=== PATIENT | male | born 1995 | race Caucasian/White ===

== ENCOUNTER → 2016-08-31 | Outpatient (REF) | payer OTHER | LOC: M LAB REF 20:58 | PROVIDERS: ATTEND Physician Assistant | DX: J02.9 Acute pharyngitis, unspecified (principal) ==

== ENCOUNTER 2016-09-05 06:53 | Emergency (ER) | payer OTHER ==
[~2016-09-05] VITALS: Ht 154.9 cm; Wt 72.6 kg
[2016-09-05 06:59] VITALS: BP 147/85
[2016-09-05] MEDS ORDERED: AMOX875T PO (07:14)
[2016-09-05] MEDS ORDERED: IBUPROFEN 600 MG TAB PO ONE (07:15)
[2016-09-05] MEDS ORDERED: AMOXICILLIN 500 MG CAP PO ONE (07:15)
== END 2016-09-05 07:26 | disposition home or self-care (01) ==
LOC: M ED 07:19
DX: J02.9 Acute pharyngitis, unspecified (principal); H66.92 Otitis media, unspecified, left ear; F17.200 Nicotine dependence, unspecified, uncomplicated

== ENCOUNTER → 2016-09-20 | Outpatient (REF) | payer OTHER ==
[~2016-09-20] MED LIST: AMOX875T PO
== END ==
LOC: M LAB REF 16:40
PROVIDERS: ATTEND Physician Assistant
DX: J06.9 Acute upper respiratory infection, unspecified (principal)